=== PATIENT | female | born 1990 | race Caucasian/White ===

== ENCOUNTER 2022-05-21 14:21 | Emergency (ER) | payer MEDICAID, OTHER ==
[~2022-05-21] VITALS: Ht 170.2 cm; Wt 90.0 kg
[2022-05-21] MEDS ORDERED: IBUPROFEN 600MG TABLET PO STA (14:52)
[2022-05-21 15:34] LABS: BASOPHILS % 0.6 % (0.0-2.0); HEMATOCRIT. 35.4 % (36.0-48.0); HEMOGLOBIN. 11.8 g/dL (12.0-16.0); LYMPHOCYTES % 30.8 % (20.0-50.0); MEAN CORPUSCULAR HEMOGLOBIN 27.3 pg (28.0-32.0); MEAN CORPUSCULAR VOLUME 81.7 fL (81.0-99.0); MEAN PLATELET VOLUME 9.1 fl (7.4-10.4); MONOCYTES % 6.8 % (2.0-8.0); NEUTROPHILS % 59.8 % (40.0-76.0); PLATELET 358 x1000/uL (130-400); RED BLOOD CELL COUNT 4.33 mill/uL (4.2-5.4); RED CELL DISTRIBUTION WIDTH 14.9 % (11.6-14.6)
[2022-05-21 15:35] LABS: CHLORIDE 105 mEq/L (98-107)
[2022-05-21] MEDS ORDERED: IBUP-2029 MT (17:26)
[2022-05-21] MEDS ORDERED: IBUPROFEN 600MG TABLET PO ONE (17:30)
[2022-05-21 18:00] VITALS: BP 125/80
== END 2022-05-21 18:02 | disposition home or self-care (01) ==
LOC: ER 14:21
DX: G40.909 Epilepsy, unspecified, not intractable, without status epilepticus (principal)
CPT/HCPCS: 36415; 80053; 85025; 99283; Z7610

== ENCOUNTER 2022-08-12 00:08 | Emergency (ER) | payer MEDICAID ==
[~2022-08-12] VITALS: Ht 172.7 cm; Wt 140.0 kg
[~2022-08-12 00:08] MED LIST: IBUP-2029 MT
[2022-08-12 00:12] VITALS: BP 155/95; PULSE 78; RESP 16; O2SAT 99
[2022-08-12 01:00] VITALS: TEMP 98.3
[2022-08-12] MEDS ORDERED: ACETAMINOPHEN 325MG TABLET PO ONE (01:00)
[2022-08-12] MEDS ORDERED: AMOXICILLIN/POTASSIUM CLAVULANATE 875/125MG TAB PO ONE (01:00)
[2022-08-12] MEDS ORDERED: KETOROLAC 30MG/ML VIAL IV ONE (01:00)
[2022-08-12 01:04] LABS: EOSINOPHILS % 1.8 % (0.0-5.0); HEMATOCRIT. 37.9 % (36.0-48.0); HEMOGLOBIN. 12.8 g/dL (12.0-16.0); LYMPHOCYTES % 28.6 % (20.0-50.0); MEAN CORPUSCULAR HEMOGLOBIN 27.3 pg (28.0-32.0); MEAN CORPUSCULAR VOLUME 81.2 fL (81.0-99.0); MEAN PLATELET VOLUME 8.8 fl (7.4-10.4); MONOCYTES % 4.7 % (2.0-8.0); NEUTROPHILS % 63.9 % (40.0-76.0); PLATELET 388 x1000/uL (130-400); RED BLOOD CELL COUNT 4.67 mill/uL (4.2-5.4); RED CELL DISTRIBUTION WIDTH 15.6 % (11.6-14.6)
[2022-08-12 01:13] LABS: CHLORIDE 106 mEq/L (98-107)
[2022-08-12 01:32] LABS: HCG SCREEN NEGATIVE
[2022-08-12] MEDS ORDERED: TOPUD PO (02:56)
[2022-08-12] MEDS ORDERED: AMOX1TAB16 MT (02:56)
[2022-08-12] MEDS ORDERED: IBUP-2028 MT (02:56)
[2022-08-12] MEDS ORDERED: IOHEXOL-300 100 ML BOTTLE ONE (04:04)
== END 2022-08-12 06:43 | disposition home or self-care (01) ==
LOC: ER 00:08
DX: K02.9 Dental caries, unspecified (principal); H66.92 Otitis media, unspecified, left ear; Z88.5 Allergy status to narcotic agent; Z86.59 Personal history of other mental and behavioral disorders
CPT/HCPCS: 80053; 81025; 84703; 85025; 36415; 70487; 70491; 96374; 99285; Q9967; J1885; Z7610 ×2

== ENCOUNTER 2024-06-17 15:45 | Emergency (ER) | payer MEDICAID ==
[~2024-06-17] VITALS: Ht 170.2 cm; Wt 120.0 kg
[~2024-06-17 15:45] MED LIST changes: +AMOX1TAB16 MT; +IBUP-2028 MT; +TOPUD PO
[2024-06-17 15:54] VITALS: O2SAT 96
[2024-06-17 16:55] LABS: BASOPHILS % 0.8 % (0.0-2.0); EOSINOPHILS % 1.9 % (0.0-5.0); HEMATOCRIT. 38.4 % (36.0-48.0); HEMOGLOBIN. 12.4 g/dL (12.0-16.0); LYMPHOCYTES % 23.9 % (20.0-50.0); MEAN CORPUSCULAR HEMOGLOBIN 26.6 pg (28.0-32.0); MEAN CORPUSCULAR HGB CONC 32.2 g/dL (31.0-37.0); MEAN CORPUSCULAR VOLUME 82.6 fL (81.0-99.0); MEAN PLATELET VOLUME 9.2 fl (7.4-10.4); NEUTROPHILS % 67.4 % (40.0-76.0); PLATELET 345 x1000/uL (130-400); RED BLOOD CELL COUNT 4.65 mill/uL (4.2-5.4); RED CELL DISTRIBUTION WIDTH 15.2 % (11.6-14.6); WHITE BLOOD COUNT 15.2 x1000/uL (4.5-11.0)
[2024-06-17 17:06] LABS: CHLORIDE 103 mEq/L (98-107); SODIUM 139 mEq/L (136-145)
[2024-06-17 17:07] LABS: CALCIUM 9.1 mg/dL (8.7-10.4); CARBON DIOXIDE 29 mEq/L (21-32)
[2024-06-17 17:12] LABS: CREATININE 0.7 mg/dL (0.6-1.0); GLUCOSE 102 mg/dL (70-105); UREA NITROGEN BLOOD 10 mg/dL (9-23)
[2024-06-17 17:19] LABS: TROPONIN I HIGH SENSITIVITY < 4 ng/L (3.0-34)
[2024-06-17 17:31] LABS: PROTHROMBIN TIME 10.3 sec (9.6-11.0)
[2024-06-17] MEDS: LIDOCAINE 5% PATCH TOP NR (19:24)
[2024-06-17] MEDS: KETOROLAC 30MG/ML VIAL IM NR (19:24)
[2024-06-17 19:38] LABS: COLOR URINE YELLOW (YELLOW); GLUCOSE URINE NEGATIVE (NEGATIVE); KETONES URINE TRACE (NEGATIVE); LEUKOCYTE ESTERASE URINE 1+ (NEGATIVE); NITRITE URINE NEGATIVE (NEGATIVE); OCCULT BLOOD URINE 1+ (NEGATIVE); PH URINE 7.5 (4.5-8.0); PROTEIN URINE NEGATIVE (NEGATIVE); SPECIFIC GRAVITY URINE 1.027 (1.005-1.030)
[2024-06-17 19:56] LABS: CLARITY URINE SL HAZY (CLEAR)
[2024-06-17 19:58] LABS: BACTERIA URINE TRACE; SQUAMOUS EPITHELIAL CELL URINE FEW /lpf (RARE/1+)
[2024-06-17] MEDS ORDERED: KETO10TA2 MT (20:17)
[2024-06-17] MEDS ORDERED: SIME80TA15 MT (20:17)
[2024-06-17 20:29] VITALS: BP 124/59; PULSE 95; RESP 20; TEMP 36.8; O2SAT 96
== END 2024-06-17 20:30 | disposition home or self-care (01) ==
LOC: ER 15:45
DX: R07.89 Other chest pain (principal); F32.A Depression, unspecified; F41.9 Anxiety disorder, unspecified; Z88.5 Allergy status to narcotic agent; Z90.89 Acquired absence of other organs; Z86.59 Personal history of other mental and behavioral disorders
CPT/HCPCS: 99285; 71045; 80048; 81003; 81025; 83690; 85025; 85610; 84484; 36415; 93005; 96372; J1885

== ENCOUNTER 2025-01-27 08:31 | Emergency (ER) | payer MEDICAID ==
[~2025-01-27] VITALS: Ht 170.2 cm; Wt 115.0 kg
[~2025-01-27 08:31] MED LIST changes: +IBUP-1455 MT; -IBUP-2029 MT; +KETO10TA2 MT; +SIME80TA15 MT
[2025-01-27 08:38] VITALS: O2SAT 96
[2025-01-27 09:32] VITALS: BP 121/74; PULSE 80; RESP 18; TEMP 36.7; O2SAT 96
== END 2025-01-27 09:34 | disposition home or self-care (01) ==
LOC: ER 08:46
DX: S93.401A Sprain of unspecified ligament of right ankle, initial encounter (principal); R20.2 Paresthesia of skin; R53.1 Weakness; G40.909 Epilepsy, unspecified, not intractable, without status epilepticus; F41.9 Anxiety disorder, unspecified; F32.A Depression, unspecified; Z88.5 Allergy status to narcotic agent; Z90.89 Acquired absence of other organs; X50.1XXA Overexertion from prolonged static or awkward postures, initial encounter; Y93.89 Activity, other specified; Y92.89 Other specified places as the place of occurrence of the external cause; Y99.8 Other external cause status
CPT/HCPCS: 73610; 99283